=== PATIENT | male | born 1990 | race Caucasian/White ===

== ENCOUNTER 2019-11-17 15:09 | Emergency (ER) | payer SELFPAY ==
[2019-11-17 15:10] VITALS: PULSE 68; TEMP 36.7; BMI 22.3
--- NOTE | 2019-11-17 15:14 | ED_ITS ---
Entered by Sahara Almeida, acting as scribe for Tomer Rivera MD HPI - Seizure General: Chief Complaint: Seizure Stated Complaint: SEIZURE Time Seen by Provider: 11/17/19 15:13 Source: patient and police Mode of arrival: EMS Limitations: no limitations History of Present Illness: HPI Narrative: 29 yo male presents with seizure activity. pt states this occurred today. pt states he is in senior living and he has not had his medications. pt has a hx of seizures. pt denies any other symptoms at this time. MD complaint: seizure Onset (ago): day(s) -: minutes(s) Witnessed: Yes - by Other (police staff) Seizure History: Yes Place: senior living Possible Precipitating Event: medication Associated symptoms: Deny chest pain, chills or fever(s) Treatments prior to arrival: none Review of Systems Const: Denies: fever, chills, body aches or change in appetite Eyes: Denies: blurry vision or eye discomfort ENMT: Denies: throat pain or dental pain Card: Denies: chest pain Resp: Denies: shortness of breath GI: Denies: abdominal pain, nausea, vomiting or diarrhea : Denies: painful urination Musc: Denies: neck pain or back pain Skin/Breast: Denies: rash Neuro: Denies: headache Psych: Denies: depression Reyes/Lymph: Denies: easy bruising All/Imm: Denies: hives PFSH ED PFSH: Social History Smoking and tobacco status: current every day smoker Physical Exam Const: COMMON NORMALS: no apparent distress, oriented x3 and healthy appearing HENMT: COMMON NORMALS: normocephalic and head/scalp atraumatic HEAD & SCALP: normocephalic and atraumatic Eye: COMMON NORMALS: PERRL and EOMs intact bilaterally PUPIL: Yes PERRL Neck/C-Spine: COMMON NORMALS: full ROM and supple Chest: COMMONS NORMALS: inspection of chest normal and palpation of chest normal Resp: COMMON NORMALS: normal respiratory effort, no retractions, no use of accessory muscles and clear to auscultation bilaterally AUSCULTATION: clear to auscultation bilaterally Cardio: COMMON NORMALS: regular rate, regular rhythm and no murmurs RATE: regular rate RHYTHM: regular rhythm GI: COMMON NORMALS: normal to inspection, nondistended, normoactive bowel sounds, soft to palpation, non-tender and no masses PALPATION: Yes soft Extremity: COMMON NORMALS: normal to inspection and full ROM Neuro: COMMON NORMALS: oriented x3, moves all extremities and no focal motor deficits Psych: COMMON NORMALS: mental status grossly normal, thought process normal and cooperative THOUGHT PROCESS: normal thought process Skin: COMMON NORMALS: no rashes or lesions noted and no wounds GENERAL SKIN EXAM: no rashes or lesions noted Course Vital Signs: Vital signs: Vital Signs Temperature 98.0 F 11/17/19 15:10 Pulse Rate 68 11/17/19 15:10 MDM - Seizure MDM Narrative: Medical decision making narrative: Patient presents here with seizures from the senior living. Patient has a history of seizures and has not been taking his Keppra for the last 2 months. This is likely the cause of the seizure. Patient given a loading dose of Keppra here along with Ativan will write a prescription for Keppra back at home. Patient has been stable while here. He has no signs of head injury. Discharge Plan Discharge Patient Disposition: Home, Self-Care Clinical Impression: Generalized seizure Condition: Stable Prescriptions: New Keppra 750 mg tablet 750 mg PO Q12H Qty: 60 RF: 0 Discharge Orders: Discharge Order (Routine); Ordered 11/17/19 Ordered By: Tomer Rivera Discharge Diet: Advance as tolerated Discharge Activity: Resume usual activity Patient Instructions: Recurrent Seizures Adult (ED) Coding Level of Care Code ED Service Greeter for Chg Fwd Exam Comprehensive The documentation recorded by the Juan Pablo braun Bridget Annette, accurately reflects the service I personally performed and the decisions made by , Tomer Rivera MD
[2019-11-17] MEDS: LORazepam 2 mg/mL INJ 1 mL 1 MG IVP (15:22)
--- NOTE | 2019-11-17 16:07 | W.ED.SEIZURE ---
HPI - Seizure General: Chief Complaint: Seizure Stated Complaint: SEIZURE Time Seen by Provider: 11/17/19 15:13 Source: patient and police Mode of arrival: EMS Limitations: no limitations History of Present Illness: Seizure History: Yes Place: [facility] Associated symptoms: Deny chest pain, chills or fever(s) Treatments prior to arrival: none Review of Systems Const: Denies: fever, chills, body aches or change in appetite Eyes: Denies: blurry vision or eye discomfort ENMT: Denies: throat pain or dental pain Card: Denies: chest pain Resp: Denies: shortness of breath GI: Denies: abdominal pain, nausea, vomiting or diarrhea : Denies: painful urination Musc: Denies: neck pain or back pain Skin/Breast: Denies: rash Neuro: Denies: headache Psych: Denies: depression Reyes/Lymph: Denies: easy bruising All/Imm: Denies: hives PFSH ED PFSH: Social History Smoking and tobacco status: current every day smoker Physical Exam Const: COMMON NORMALS: no apparent distress, oriented x3 and healthy appearing HENMT: COMMON NORMALS: normocephalic and head/scalp atraumatic HEAD & SCALP: normocephalic and atraumatic Eye: COMMON NORMALS: PERRL and EOMs intact bilaterally PUPIL: Yes PERRL Neck/C-Spine: COMMON NORMALS: full ROM and supple Chest: COMMONS NORMALS: inspection of chest normal and palpation of chest normal Resp: COMMON NORMALS: normal respiratory effort, no retractions, no use of accessory muscles and clear to auscultation bilaterally AUSCULTATION: clear to auscultation bilaterally Cardio: COMMON NORMALS: regular rate, regular rhythm and no murmurs RATE: regular rate RHYTHM: regular rhythm GI: COMMON NORMALS: normal to inspection, nondistended, normoactive bowel sounds, soft to palpation, non-tender and no masses PALPATION: Yes soft Extremity: COMMON NORMALS: normal to inspection and full ROM Neuro: COMMON NORMALS: oriented x3, moves all extremities and no focal motor deficits Psych: COMMON NORMALS: mental status grossly normal, thought process normal and cooperative THOUGHT PROCESS: normal thought process Skin: COMMON NORMALS: no rashes or lesions noted and no wounds GENERAL SKIN EXAM: no rashes or lesions noted Course Vital Signs: Vital signs: Vital Signs Temperature 98.0 F 03/16/20 15:10 Pulse Rate 68 11/17/19 15:10 Discharge Plan Discharge Patient Disposition: Home, Self-Care Clinical Impression: Generalized seizure Condition: Stable Prescriptions: New Keppra 750 mg tablet 750 mg PO Q12H Qty: 60 RF: 0 Discharge Orders: Discharge Order (Routine); Ordered 11/17/19 Ordered By: Tomer Rivera Discharge Diet: Advance as tolerated Discharge Activity: Resume usual activity Patient Instructions: Recurrent Seizures Adult (ED) Coding Level of Care Code ED Landscape Laborer for Olivier Gatica
[2019-11-17] MEDS: ketorolac 30 mg/mL INJ IVP (16:20)
[2019-11-17 16:26] VITALS: BP 106/62; PULSE 66; RESP 16; O2SAT 100
== END 2019-11-17 16:27 | disposition home or self-care (01) ==
LOC: ER 12-11 11:12
PROVIDERS: Emergency Provider Emergency Medicine
DX: R56.9 Unspecified convulsions (principal); F17.200 Nicotine dependence, unspecified, uncomplicated
CPT/HCPCS: 12345; 96365; 96375; 99283; J1885; J1953; J2060

== ENCOUNTER 2020-02-10 12:47 | Inpatient (IN) | payer SELFPAY ==
[2020-02-10 12:54] VITALS: BP 133/67; PULSE 64; RESP 16; TEMP 37; O2SAT 97; BMI 22.3
[2020-02-10 13:04] VITALS: PULSE 61; RESP 17; O2SAT 98
[2020-02-10 13:23] LABS: Add Urine Microscopic? NO
[2020-02-10 13:28] LABS: Bilirubin Urine Neg (NEGATIVE); Blood Urine Neg (Negative); Glucose Urine UA Norm (Normal); Ketones Urine Negative (Negative); Leukocyte Esterase Urine Negative (Negative); Nitrate Urine Negative (Negative); Protein Urine Neg (Negative); Specific Gravity, Urine 1.005 (1.005-1.030); Urine Appearance Clear (CLEAR); Urine Color Straw (Yellow); Urobilinogen Urine Norm (Negative)
--- NOTE | 2020-02-10 13:29 | ED_ITS ---
HPI - Psych General: Chief Complaint: Psychiatric Symptoms Stated Complaint: 96 Time Seen by Provider: 02/10/20 12:54 History of Present Illness: HPI Narrative: This patient is a 29-year-old male presenting from [facility]. Apparently he tried to hang himself 3 days ago using first a towel and then made another attempt using his jumpsuit. He was evaluated at [facility] after this incident. He was released back to [facility] and has been on suicide watch. He is now here on a 96-hour hold order from the courts. He admits to previously feeling suicidal and making the attempts but says he does not currently feel suicidal. He does feel depressed and down. He has a history of seizures and apparently had not been on seizure medications. He had a seizure yesterday and was started back on levetiracetam. MD complaint: suicidal ideation and feels depressed Onset (ago): week(s) Duration: constant Review of Systems General: Reports: 10 or more systems reviewed and unremarkable except in HPI and below Const: Denies: fever(s), chills, fatigue or malaise Eyes: Denies: change in vision ENMT: Denies: odynophagia Card: Denies: chest pain or swelling of feet/ankles Resp: Denies: dyspnea, productive cough or non-productive cough GI: Denies: abdominal pain, nausea or vomiting : Denies: flank pain Musc: Denies: neck pain or back pain Skin/Breast: Denies: rash Neuro: Reports: seizure-like activity; Denies: headache(s), numbness in extremities or weakness in extremities Reyes/Lymph: Denies: easy bruising or easy bleeding [facility] ED PFSH: Social History Smoking and tobacco status: current every day smoker Physical Exam Const: COMMON NORMALS: no acute distress, patient oriented x3, no limitations and alert GENERAL APPEARANCE: cooperative and comfortable HENMT: HEAD & SCALP: normal to inspection FACE & SINUS: normal facial exam Eye: GENERAL EYE: appearance normal, both eyes and all related structures Neck/C-Spine: COMMON NORMALS: supple, no meningeal signs and no JVD Chest: COMMONS NORMALS: normal inspection of the chest Resp: COMMON NORMALS: normal respiratory effort, No use of accessory muscles and clear to auscultation bilaterally AUSCULTATION: clear to auscultation bilaterally Cardio: COMMON NORMALS: no JVD, regular rate, regular rhythm and No murmurs present (Cardio) RATE: regular rate RHYTHM: regular rhythm GI: COMMON NORMALS: Normal to inspection, nondistended, normoactive bowel sounds present, Soft to palpation and non-tender INSPECTION: Yes normal to inspection AUSCULTATION: Yes normoactive bowel sounds PALPATION: Yes Soft to palpation Back/Pelvis: COMMON NORMALS: thoracic and lumbar spine normal to inspection Extremity: COMMON NORMALS: normal to inspection Neuro: COMMON NORMALS: patient oriented x3, moves all extremities, no focal motor deficits and no sensory deficits noted SENSORIUM/ORIENTATION: Yes alert MENINGEAL SIGNS: Yes no meningeal signs Psych: COMMON NORMALS: mental status grossly normal, cooperative and normal affect Skin: COMMON NORMALS: no rashes or lesions noted and turgor normal GENERAL SKIN EXAM: no rashes or lesions noted and turgor normal MDM - Psych MDM Narrative: Medical decision making narrative: Suicide attempt several days ago. Endorses continued depression although denies current suicidal ideation. Here on a 96-hour court ordered hold. History of seizures. Plan to continue his levetiracetam. Lab Data: Labs: Lab Results 02/10/20 02/10/20 02/10/20 Range/Units 13:00 13:00 13:15 WBC 6.9 (4.0-10.0) 10^3/ uL RBC 4.64 (4.1-5.3) 10^6/u L Hgb 13.6 (11.7-16.6) g/dL Hct 41.0 L (42.0-52.0) % MCV 88.4 (80-94) fL MCH 29.3 (28.0-34.0) pg MCHC 33.2 (30.0-36.0) g/dL RDW 12.5 (12.1-15.1) % Plt Count 313 (130-400) 10^3/c mm MPV 9.4 (7.4-10.4) fL Neut % (Auto) 61.4 % Lymph % (Auto) 30.0 % Ballard % (Auto) 6.8 % Eos % (Auto) 0.4 % Baso % (Auto) 0.7 % Neut # (Auto) 4.2 (1.8-7.7) 10^3/u L Lymph # (Auto) 2.1 (0.8-4.8) 10^3/u L Ballard # (Auto) 0.5 (0.2-0.9) 10^3/u L Eos # (Auto) 0.0 (0.0-0.8) 10^3/u L Baso # (Auto) 0.1 (0.0-0.1) 10^3/u L Nucleated RBC % (a uto) 0 % Nucleated RBCs # 0.0 /100WBC Sodium (136-145) mmol/L Potassium (3.5-5.1) mmol/L Chloride (98-107) mmol/L Carbon Dioxide (22-29) mmol/L Anion Gap (5-19) BUN (6-20) mg/dL Creatinine (0.7-1.2) mg/dL GFR Calculation (90-130) mL/min Glucose (65-115) mg/dL Calculated Osmolal ity (285-295) mOsm/k g Calcium (8.5-10.5) mg/dL Total Bilirubin (0.15-1.2) mg/dL AST (0-40) U/L ALT (0-41) U/L Alkaline Phosphata se (40-130) IU/L Total Protein (6.6-8.7) g/dL Albumin (3.5-5.2) g/dL Globulin (1.3-4.6) g/dL TSH (0.27-4.20) uIU/ mL Urine Color Straw (Yellow) Urine Appearance Clear (CLEAR) Urine pH 7.0 (5-7) Ur Specific Gravit y 1.005 (1.005-1.030) Urine Protein Neg (Negative) Urine Glucose (UA) Norm (Normal) Urine Ketones Negative (Negative) Urine Blood Neg (Negative) Urine Nitrate Negative (Negative) Urine Bilirubin Neg (NEGATIVE) Urine Urobilinogen Norm (Negative) mg/dL Ur Leukocyte Shelbie ase Negative (Negative) Salicylates (3-10) mg/dL Urine Opiates Scre en Negative (Negative) ng/mL Acetaminophen (10-30) ug/mL Ur Barbiturates Sc reen Negative (Negative) ng/mL Ur Phencyclidine S crn Negative (Negative) ng/mL Ur Amphetamines Sc reen Negative (Negative) ng/mL U Benzodiazepines Scrn Negative (Negative) ng/mL Urine Cocaine Scre en Negative (Negative) ng/mL U Marijuana (THC) Screen Negative (Negative) ng/mL Ethyl Alcohol (0-10) mg/dL 02/10/20 Range/Units 13:15 WBC (4.0-10.0) 10^3/ uL RBC (4.1-5.3) 10^6/u L Hgb (11.7-16.6) g/dL Hct (42.0-52.0) % MCV (80-94) fL MCH (28.0-34.0) pg MCHC (30.0-36.0) g/dL RDW (12.1-15.1) % Plt Count (130-400) 10^3/c mm MPV (7.4-10.4) fL Neut % (Auto) % Lymph % (Auto) % Ballard % (Auto) % Eos % (Auto) % Baso % (Auto) % Neut # (Auto) (1.8-7.7) 10^3/u L Lymph # (Auto) (0.8-4.8) 10^3/u L Ballard # (Auto) (0.2-0.9) 10^3/u L Eos # (Auto) (0.0-0.8) 10^3/u L Baso # (Auto) (0.0-0.1) 10^3/u L Nucleated RBC % (a uto) % Nucleated RBCs # /100WBC Sodium 142 (136-145) mmol/L Potassium 4.3 (3.5-5.1) mmol/L Chloride 105 (98-107) mmol/L Carbon Dioxide 30 H (22-29) mmol/L Anion Gap 11.3 (5-19) BUN 13 (6-20) mg/dL Creatinine 0.9 (0.7-1.2) mg/dL GFR Calculation 98.4 (90-130) mL/min Glucose 87 (65-115) mg/dL Calculated Osmolal ity 290 (285-295) mOsm/k g Calcium 9.0 (8.5-10.5) mg/dL Total Bilirubin 0.3 (0.15-1.2) mg/dL AST 34 (0-40) U/L ALT 44 H (0-41) U/L Alkaline Phosphata se 53 (40-130) IU/L Total Protein 6.7 (6.6-8.7) g/dL Albumin 4.5 (3.5-5.2) g/dL Globulin 2.2 (1.3-4.6) g/dL TSH 1.31 (0.27-4.20) uIU/ mL Urine Color (Yellow) Urine Appearance (CLEAR) Urine pH (5-7) Ur Specific Gravit y (1.005-1.030) Urine Protein (Negative) Urine Glucose (UA) (Normal) Urine Ketones (Negative) Urine Blood (Negative) Urine Nitrate (Negative) Urine Bilirubin (NEGATIVE) Urine Urobilinogen (Negative) mg/dL Ur Leukocyte Shelbie ase (Negative) Salicylates 0.7 L (3-10) mg/dL Urine Opiates Scre en (Negative) ng/mL Acetaminophen < 5.0 L (10-30) ug/mL Ur Barbiturates Sc reen (Negative) ng/mL Ur Phencyclidine S crn (Negative) ng/mL Ur Amphetamines Sc reen (Negative) ng/mL U Benzodiazepines Scrn (Negative) ng/mL Urine Cocaine Scre en (Negative) ng/mL U Marijuana (THC) Screen (Negative) ng/mL Ethyl Alcohol < 10 (0-10) mg/dL Discharge Plan Discharge Patient Disposition: Admitted As Inpatient Admit Provider: Fausto Stanton Clinical Impression: Suicidal ideation, Seizure Condition: Stable Discharge Date/Time: 02/10/20 16:24 Coding Level of Care Code ED Flag Signaler for g Fwd Exam Comprehensive
[2020-02-10 13:31] LABS: Basophils # 0.1 10^3/uL (0.0-0.1); Basophils % 0.7 %; Eosinophils % 0.4 %; Hemoglobin 13.6 g/dL (11.7-16.6); Lymphocytes # 2.1 10^3/uL (0.8-4.8); Mean Corpuscular HGB Conc 33.2 g/dL (30.0-36.0); Mean Corpuscular Hemoglobin 29.3 pg (28.0-34.0); Mean Corpuscular Volume 88.4 fL (80-94); Mean Platelet Volume 9.4 fL (7.4-10.4); Monocytes # 0.5 10^3/uL (0.2-0.9); Monocytes % 6.8 %; Neutrophils # 4.2 10^3/uL (1.8-7.7); Neutrophils % 61.4 %; Nucleated Red Blood Cells % 0 %; Platelet Count 313 10^3/cmm (130-400); Red Blood Count 4.64 10^6/uL (4.1-5.3); Red Cell Distribution Width 12.5 % (12.1-15.1); White Blood Count 6.9 10^3/uL (4.0-10.0)
[2020-02-10 13:35] LABS: Amphetamines Screen Urine Negative (Negative); Barbiturates Screen Urine Negative (Negative); Benzodiazepines Screen Urine Negative (Negative); Cocaine Screen Urine Negative (Negative); Opiate Screen Urine Negative (Negative); PCP Screen Urine Negative (Negative); THC Screen Urine Negative (Negative)
[2020-02-10] MEDS: LORazepam 1 mg Tablet PO (13:45)
[2020-02-10 13:54] LABS: Alanine Aminotransferase 44 U/L (0-41); Albumin Level 4.5 g/dL (3.5-5.2); Alkaline Phosphatase 53 IU/L (40-130); Anion Gap 11.3 (5-19); Aspartate Amino Transferase 34 U/L (0-40); Blood Urea Nitrogen 13 mg/dL (6-20); Carbon Dioxide 30 mmol/L (22-29); Chloride 105 mmol/L (98-107); Globulin 2.2 g/dL (1.3-4.6); Glomerular Filtration Rate 98.4 mL/min (90-130); Glucose 87 mg/dL (65-115); Osmolality Calculated 290 mOsm/kg (285-295); Potassium 4.3 mmol/L (3.5-5.1); Salicylate 0.7 mg/dL (3-10); Sodium 142 mmol/L (136-145); Thyroid Stimulating Hormone 1.31 uIU/mL (0.27-4.20); Total Bilirubin 0.3 mg/dL (0.15-1.2); Total Protein 6.7 g/dL (6.6-8.7)
[2020-02-10 14:08] LABS: Acetaminophen < 5.0 ug/mL (10-30); Alcohol Level < 10 mg/dL (0-10)
[2020-02-10 15:51] VITALS: BP 134/68; PULSE 61; RESP 17; O2SAT 95
[2020-02-10 16:24] VITALS: BP 132/79; PULSE 57; RESP 18; TEMP 37; O2SAT 99
[2020-02-10] MEDS: levETIRAcetam 500 mg Tablet 750 MG PO (17:43)
[2020-02-10] MEDS: OLANZapine 5 mg ODT PO (17:45)
--- NOTE | 2020-02-10 17:45 | PC.NURSE ---
PRN ZYPREXA ZYDIS ZYPREXA ZYDIS 5MG PO PER PATIENT C/O ANXIETY/AGITATION. WILL CONTINUE TO MONITOR FOR MEDICATION EFFECTIVENESS.
[2020-02-10 20:59] VITALS: BP 109/75; PULSE 89; RESP 17; TEMP 36.6; O2SAT 96
[2020-02-11 06:00] VITALS: BP 91/56; PULSE 59; RESP 18; TEMP 37.2; O2SAT 98
[2020-02-11] MEDS: levETIRAcetam 500 mg Tablet 750 MG PO (09:13)
[2020-02-11] MEDS: hyDROXYzine 25 mg Capsule 50 MG PO (12:53)
--- NOTE | 2020-02-11 12:53 | PC.NURSE ---
PRN VISTARIL 50 MG GIVEN PO PER PT C/O STATED ANXIETY. PT HAS BEEN PACING HALLWAYS, HAS PRESSURED SPEECH. WILL CONT TO MONITOR.
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
[2020-02-11 14:00] VITALS: BP 116/68; PULSE 87; RESP 18; TEMP 36.8; O2SAT 98
[2020-02-11] MEDS: CLONazepam 0.5 mg Tablet PO (15:09)
--- NOTE | 2020-02-11 15:43 | PC.NURSE ---
PT NOTE: STAFF CAME TO THE NURSES STATION TO LET THIS NURSE KNOW THAT A PATIENT HAD JUST JUMPED OUT THE DAYROOM WINDOW. IT APPEARED THAT PATIENT HAD PRYED WINDOW FRAME OPEN TO RELEASE WINDOW AND APPARENTLY WENT THROUGH THE WINDOW JUMPING TO THE GROUND. SECURITY, MAINTENANCE, AND PHYSICIAN INFORMED, ALL PATIENTS PLACED IN ROOMS FOR SAFETY AND TO DETERMINE WHICH PT. EXITED THE WINDOW, WINDOW GUARDED FOR SAFETY UNTIL MAINTENANCE ARRIVED.
--- NOTE | 2020-02-11 16:35 | PC.RESP ---
SMOKING CESSATION INFORMATION SENT TO PATIENT.
--- NOTE | 2020-02-11 17:45 | PM.NDC ---
Diagnoses at Discharge Discharge Diagnosis (1) Major depression, single episode: Status: Suspected Problem details: Diagnosis based solely on patient report. It is now felt that patient had an otherwise primary gain for establishing this diagnosis that he felt would provide his escape from incarceration. Qualifiers: Active/Remission status: currently active (2) Antisocial personality disorder: Status: Chronic (3) Adjustment disorder with disturbance of conduct: Status: Acute Reason for Visit Reason for Visit: 96 Brief History: History of Present Illness Chief complaint: I tried to hang myself. History of present illness:Bull Jewell is a 29 year old male who was admitted on a 96-hour involuntary commitment based on affidavit filed by the [facility]. The patient apparently was incarcerated at the [facility] residential on a probation violation. He did not specify. However his list of arrests according to the [place] public record are noted below. Apparently, while incarcerated, he attempted to hang himself with a towel and later again tried to hang himself with his jumpsuit. Apparently he was unconscious for short period of time. He was taken by ambulance to the [facility] but was later released with no substantial injuries. A court order has now been issued for a 96-hour commitment until 15 February for an assessment of imminent risk to self or others. The patient reports that he has been depressed for several months. He says that it is primarily due to his inability to get access to his medications of Keppra and Klonopin. However, it appears that he has significant psychosocial stressors. The patient is not very candid regarding these. He says that he has been having frequent suicidal thoughts. He has occasional auditory hallucinations of a single voice that say demeaning things to him. There is no command nature to the voice. He does not recognize the voice. It comes from outside of his head. He is irritable. He has but's been despondent. He reports poor hedonic capacity. However he is looking forward to March 06 when he can see his 3 children. He reports global insomnia and claims to have not slept for several days. Hospital Course Hospital Course Toward the end of the psychiatric evaluation, the patient was clearly distraught when it became apparent that he was not going to be allowed to leave and go home. This began when he was informed that he was on a 96-hour involuntary commitment. It was his understanding that once he was no longer suicidal, he would be discharged from the hospital. He then left the office. He was visibly irritated. He then went to the common room, broke out a window and escaped from the hospital. Involuntary Hold Information 96 Hour Hold: 96 Hour Involuntary Admission: Yes 96 Hour Hold Ending Date: 02/16/20 96 Hour Hold Ending Time: 12:47 Mental Status Exam MSE Comments: This is the last recorded mental Status Exam before he escaped from the hospital: The patient is a tall thin male in mild emotional distress. He has multiple present tattoos around his neck and upper arms. Information provided is internally consistent and consistent with that in the chart. However he does not elaborate on questions and provides only short one-word or 1 phrase answers. Appearance: hygiene is good: No gross neurological deficits., gait is unremarkable; AIMS=0 Speech: Speech is of normal rate and rhythm and easily understood. Thought processes: Thought processes are abstract. Judgment is adequate for safety. Associations: intact Psychotic processes: There is no indication of guarding or paranoia. There is no attention to the internal stimuli. Auditory and visual hallucinations are denied. Judgment: Insight is fair. Problem solving skills are adequate for safety. Orientation: The patient is oriented to person, place time and situation. Memory: no deficits noted in immediate, intermediate, or remote spheres. Attention: The patient is alert and interpersonally engaged. Language: Verbalizations are coherent. Fund of knowledge: Fund of knowledge is adequate. Affect/Mood: Affect is consistent with a depressed mood. Positive suicidal ideation without intent or plan ;affective range constricted. Psychosis: perception unimpaired except through cognitive distortion; reality testing intact. Cognition: Patient Appearance: Appropriate Level of Consciousness: Awake, Alert, Appropriate and Follows Commands Patient Cognition Impaired: No Ability to Follow Directions: Good Patient Orientation (long list): Person, Place, Time and Name Comprehension Ability: No Impairment Hallucination Type: None Delusion Description: Not Present Thought Process: Appropriate Affect: Depressive Symptoms: Unhappiness Behavior: Speech Pattern: Clear Discharge Data Vitals: Last Vital Signs Temp 98.2 F 02/11/20 14:00 Pulse 87 02/11/20 14:00 Resp 18 02/11/20 14:00 BP 116/68 02/11/20 14:00 Pulse Ox 98 02/11/20 14:00 Discharge Plan Discharge Patient Disposition: Left Against Medical Advice Condition: Stable Prescriptions: Continued levetiracetam [Keppra] 750 mg tablet 750 mg PO Q12H 1 Days RF: 0 Discharge Orders: Discharge Order (Routine); Ordered 02/11/20 Ordered By: Fausto Stanton Referrals: [facility] [Outside] (walk-in hours 7:30-2:30 Sunday through Sunday. To start services for outpatient mental health services you have to request initial intake some time during the walk-in hours. ) Discharge Attestations NPU Time Spent in Discharge Care*: less than 30 min Coding Level of Care Code Acute Client Solutions Director for g Fwd Diagnoses Major depression, single episode F32.9 Active/Remission status: currently active Antisocial personality disorder F60.2 Adjustment disorder with disturbance of conduct F43.24
[2020-02-11 18:08] VITALS: BP 116/68; PULSE 87; RESP 18; TEMP 36.8; O2SAT 98
--- NOTE | 2020-02-12 12:08 | PC.SOCIAL ---
Addendum entered by RAH Valverde 02/12/20 15:06: Other attempts were made. Still no answer for Eliza. Judith did answer but it was a bad connection and I could not hear her very well then the call was dropped. Will continue to try to reach someone. Original Note: Attempted to reach all known contacts for the patient to do a well being check. Eliza Hatch [phone]-no answer, no voicemail set up. Judith Ankur [phone]-no answer, no voicemail set up. No number found for his girlfriend Guera Ashley, unable to locate on online. Will continue to try these numbers to check on the patient.
--- NOTE | 2020-02-12 16:47 | PC.SOCIAL ---
Reached Judith at [phone]. She is an extended family member of Bull. She reports that he was at her home this morning when she left for work. His ankle was hurt but otherwise okay. They did not think it was broken, it was wrapped in an Eloy bandage. He had told her what had happened. Assured her we just wanted to check on his wellbeing. She reported that he did have a phone but she did not know the number, she was driving so she could not look it up. She also could not take my number down. Informed her I would call back tomorrow to check on him and hopefully talk to him and make sure he is doing okay.
--- NOTE | 2020-02-13 13:46 | PC.SOCIAL ---
Spoke to Judith again this morning. She is a relative of his girlfriend Guera. She reports he is feeling better and more upbeat. He was able to find work and went this morning. 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 Located [place] [employer] at [address] [place] [id number] and suspect that is where he is working. Asked her to please have him call me so I can speak to him myself and check on him. Again, emphasized he is not in any trouble, just wanting to do a well being check.
== END 2020-02-11 15:32 | disposition left against medical advice (07) | DRG 882 ==
LOC: ER 14:43 → NP 15:13
PROVIDERS: Emergency Medicine; Admitting Provider Psychiatry & Neurology Psychiatry; Visit Provider Psychiatry & Neurology Psychiatry
DX: F43.24 Adjustment disorder with disturbance of conduct (principal); F32.9 Major depressive disorder, single episode, unspecified; F60.2 Antisocial personality disorder; Z91.5 Personal history of self-harm; G47.09 Other insomnia; Z53.29 Procedure and treatment not carried out because of patient's decision for other reasons; F17.210 Nicotine dependence, cigarettes, uncomplicated
CPT/HCPCS: 12345; 36415; 80053; 80306; 80307; 81003; 84443; 85025; 99284